=== PATIENT | male | born 2000 | race Caucasian/White ===

== ENCOUNTER 2019-08-07 20:23 | Emergency (ER) | payer MEDICAID ==
[~2019-08-07] VITALS: Ht 180.3 cm; Wt 79.5 kg
[2019-08-07] MEDS: FLUoxetine 20mg capsule PO SCH (21:05)
[2019-08-07 22:15] LABS: CLARITY,URINE CLEAR (Clear); COLOR,URINE YELLOW (Yellow); GLUCOSE, URINE NEGATIVE (Neg); KETONES,URINE NEGATIVE (Neg); LEUKOCYTE ESTERASE ,URINE NEGATIVE (Neg); NITRITES, URINE NEGATIVE (Neg); OCCULT BLOOD,URINE NEGATIVE (Neg); PROTEIN,URINE NEGATIVE (Neg); UROBILINOGEN,URINE 0.2 E.U/dL (0.2-1.0)
[2019-08-07 22:19] LABS: UA COLLECTION TYPE URINAL
[2019-08-07 22:23] LABS: URINE AMPHETAMINE SCREEN NEGATIVE (Neg); URINE BARBITUATE SCREEN NEGATIVE (Neg); URINE BENZODIAZEPINES SCREEN NEGATIVE (Neg); URINE CANNABINOID SCREEN POSITIVE (Neg); URINE COCAINE SCREEN NEGATIVE (Neg); URINE METHADONE SCREEN NEGATIVE (Neg); URINE OPIATE SCREEN NEGATIVE (Neg); URINE PHENCYCLIDINE SCREEN NEGATIVE (Neg)
[2019-08-07 22:36] LABS: BASOPHILS % (AUTO) 0.5 % (0-1); EOSINOPHILS # (AUTO) 0.1 X10'3 (0-0.9); EOSINOPHILS % (AUTO) 1.4 % (0-6); HEMATOCRIT 44.5 % (42.0-52.0); HEMOGLOBIN 15.2 g/dl (14.0-17.9); LYMPHOCYTES # (AUTO) 2.1 X10'3 (1.1-4.8); LYMPHOCYTES % (AUTO) 19.9 % (21-51); MEAN CORPUSCULAR HGB CONC 34.2 g/dL (33.0-36.5); MEAN CORPUSCULAR VOLUME 90.5 FL (78-98); MEAN PLATELET VOLUME 7.5 FL (7.4-10.4); MONOCYTES # (AUTO) 0.7 X10'3 (0-0.9); MONOCYTES % (AUTO) 6.7 % (2-12); NEUTROPHILS # (AUTO) 7.5 X10'3 (1.8-7.7); NEUTROPHILS % (AUTO) 71.5 % (42-75); PLATELET COUNT 216 X10'3 (140-440); RED BLOOD COUNT 4.92 X10'6 (4.70-6.10); RED CELL DISTRIBUTION WIDTH 13.1 % (11.5-14.5); WHITE BLOOD COUNT 10.5 X10'3 (4.5-11.0)
[2019-08-07 22:49] LABS: ALANINE AMINOTRANSFERASE 17 U/L (12-78); ALBUMIN 3.6 G/DL (3.4-5.0); ALBUMIN/GLOBULIN RATIO 1.1 (1.1-1.5); ALKALINE PHOSPHATASE 65 IU/L (20-180); ANION GAP 5 (8-16); ASPARTATE AMINO TRANSFERASE 13 U/L (10-37); BILIRUBIN,TOTAL 0.2 MG/DL (0.1-1.0); BLOOD UREA NITROGEN 11 MG/DL (7-18); BUN/CREATININE RATIO 12.9 (5.4-32.0); CALCIUM 9.1 MG/DL (8.5-10.1); CHLORIDE 108 MMOL/L (99-107); CREATININE 0.85 MG/DL (0.60-1.10); GLUCOSE 84 MG/DL (70-104); POTASSIUM 3.7 MMOL/L (3.5-5.1); SODIUM 144 MMOL/L (135-145); TOTAL CARBON DIOXIDE 30.8 MMOL/L (24-32); TOTAL PROTEIN 6.9 G/DL (6.4-8.2); eGFR > 90 ML/MIN
[2019-08-07 22:59] LABS: ETHANOL < 0.010 GM/DL (0.0-0.010)
--- NOTE | 2019-08-07 23:26 | NUR ---
Pt is sleeping on left side. Respirations unlabored. NAD. Addendum: 08/07/19 at 2327 by LUCIAKINSEvans This RN is breaking primary RN. Patient sleeping on left side. Respirations unlabored. NAD.
--- NOTE | 2019-08-08 01:05 | NUR ---
Pt. ambulated over from Main ER accompanied by tech, appears calm and cooperative. RR even and unlabored, and pt. immediately returns to sleep.
--- NOTE | 2019-08-08 03:04 | NUR ---
Pt. continues to sleep at this time, laying on his left side, appears to be resting comfortably.
--- NOTE | 2019-08-08 05:00 | NUR ---
Pt. up to use the BR, able to ambulate independently with a steady gait. He returns to bed, rr even and unlabored.
[2019-08-08] MEDS ORDERED: NO HOME MEDS (07:30)
[2019-08-08] MEDS ORDERED: nicotine 21mg patch - 24 hr TD ONE (08:00)
[2019-08-08] MEDS: FLUoxetine 20mg capsule PO SCH (08:18)
--- NOTE | 2019-08-08 08:21 | NUR ---
PT IS AWAKE, SAFTY BREAKFAST TRAY AT BEDSIDE. AM MEDICATIONS GIVEN, PT REQUESTING A NICOTINE PATCH, DR SIMMONS'S SCRIB NOTIFIED OF THE REQUEST. PT STATES THAT HE CONTINUES TO HAVE SI THOUGHTS AND STATES THAT HIS PLAN IS USING A "BIG KNIFE"
--- NOTE | 2019-08-08 09:00 | NUR ---
VERBAL ORDER FOR 21MG NICOTINE PATCH PLACED PER DR SIMMONS
--- NOTE | 2019-08-08 10:00 | NUR ---
resting in bed no s.s. of distress
--- NOTE | 2019-08-08 11:00 | NUR ---
resting in bed no s.s. of distress
--- NOTE | 2019-08-08 11:39 | NUR ---
PT SITTING IN BED COLORING WITH MARKERS; ASKED FOR ANOTHER NICOTINE PATCH; PT HAD PATCH PLACED THIS AM, EXPLAINED ADMINISTRATION AND DOSING AND PT VERBALIZED UNDERSTANDING.
--- NOTE | 2019-08-08 12:00 | NUR ---
resting in bed no s.s. of distress
--- NOTE | 2019-08-08 13:00 | NUR ---
resting in bed no s.s. of distress
--- NOTE | 2019-08-08 14:00 | NUR ---
resting in bed no s.s. of distress
--- NOTE | 2019-08-08 15:00 | NUR ---
resting in bed no s.s. of distress
--- NOTE | 2019-08-08 16:00 | NUR ---
resting in bed no s.s. of distress
--- NOTE | 2019-08-08 17:00 | NUR ---
resting in bed no s.s. of distress
[2019-08-08 17:48] VITALS: BP 128/74
--- NOTE | 2019-08-08 17:52 | NUR ---
PT ACCEPTED TO [facility] BY NORIS ROJAS AT 1740.
--- NOTE | 2019-08-08 18:07 | NUR ---
resting in bed no s.s. of distress
--- NOTE | 2019-08-08 18:14 | NUR ---
Received report and assumed care of patient from LEE Rojas.
--- NOTE | 2019-08-08 19:00 | NUR ---
The patient is lying in bed waiting to be admitted to [facility]. No s/s of distress.
[2019-08-09] MEDS ORDERED: FLUO20CA39 PO (08:24)
== END 2019-08-08 19:16 ==
LOC: ER 20:25
DX: F41.9 Anxiety disorder, unspecified (principal); R45.851 Suicidal ideations; R94.6 Abnormal results of thyroid function studies
CPT/HCPCS: 36415; 80053; 80305; 80320; 81003; 84443; 85025; 99285